=== PATIENT | female | born 1935 | race Caucasian/White ===

== ENCOUNTER 2016-08-24 19:19 | Inpatient (IN) | payer MEDICARE, BC ==
[~2016-08-24] VITALS: Ht 157.5 cm; Wt 81.2 kg
[2016-08-24 20:26] LABS: HEMATOCRIT 37.2 % (37.0-47.0); HEMOGLOBIN 12.6 g/dl (12.5-16.0); MEAN CELL VOLUME 89 fl (80.0-100.0); MEAN CORPUSCULAR HEMOGLOBIN 30 pg (27.0-31.0); MEAN CORPUSCULAR HGB CONC 34 g/dl (33.0-37.0); WHITE BLOOD COUNT 2.7 K/mm3 (4.8-10.8)
[2016-08-24] MEDS ORDERED: GLUCOPHAGE1000 MG PO (20:34)
[2016-08-24] MEDS ORDERED: SYNTHROID0.05 MG/TA PO (20:34)
[2016-08-24] MEDS ORDERED: COREG 25MG25 MG/TAB PO (20:35)
[2016-08-24] MEDS ORDERED: BACTRIM DS 8001 TAB PO (20:35)
[2016-08-24] MEDS ORDERED: PRINIVIL40 MG PO (20:35)
[2016-08-24] MEDS ORDERED: CRESTOR20 MG PO (20:36)
[2016-08-24] MEDS ORDERED: NOVOLOG FLEX100 U/ML SQ (20:36)
[2016-08-24] MEDS ORDERED: LEVEMIR FLEX100 U/ML SQ (20:36)
[2016-08-24 20:44] LABS: ADJUSTED CALCIUM 8.1 mg/dL (8.4-10.2); ALANINE AMINOTRANSFERASE 70 U/L (9-52); ALKALINE PHOSPHATASE 59 U/L (50-136); ANION GAP 14 mmol/L (7-16); BILIRUBIN,TOTAL 0.6 mg/dL (0.0-1.0); BLOOD UREA NITROGEN 32 mg/dL (7-17); CALCIUM 8.1 mg/dL (8.4-10.2); CARBON DIOXIDE 22 mmol/L (22-30); CHLORIDE 93 mmol/L (98-107); CREATININE, serum 1.41 mg/dL (0.52-1.25); GLUCOSE 263 mg/dL (74-106); LIPASE 567 U/L (23-300); MAGNESIUM 1.8 mg/dL (1.6-2.3); PHOSPHOROUS 3.4 mg/dL (2.5-4.5); POTASSIUM 4.2 mmol/L (3.4-5.0); SODIUM 129 mmol/L (137-145); TOTAL PROTEIN 6.8 gm/dL (6.4-8.2)
[2016-08-24 20:45] LABS: C-REACTIVE PROTEIN < 0.5 mg/dL (0.0-0.9)
[2016-08-24 20:48] LABS: PLATELET COUNT 45 K/mm3 (130-400)
[2016-08-24 20:49] LABS: ADD PATHOLOGY DIFF REVIEW NO
[2016-08-24 21:18] LABS: PH 5 (5-8); SQUAMOUS EPITHELIAL 0-2 /hpf; URINE APPEARANCE Cloudy; URINE BACTERIA Rare /hpf; URINE BILIRUBIN Negative (NEGATIVE); URINE BLOOD 1+ (NEGATIVE); URINE COLOR Yellow; URINE GLUCOSE 1+ (NEGATIVE); URINE KETONE Trace (NEGATIVE); URINE UROBILINOGEN Negative (NEGATIVE)
[2016-08-24 21:28] LABS: BAND 4 % (0-10); NEUTROPHILS 59 % (42.0-75.2); TOTAL CELLS COUNTED 100
[2016-08-24 21:29] LABS: MICROCYTOSIS 1+; PLATELET ESTIMATE DECREASED (NORMAL)
[2016-08-24 23:18] VITALS: TEMP 99.2
[2016-08-24 23:32] VITALS: BP 132/68; PULSE 79; TEMP 99.4
[2016-08-25 00:05] LABS: INR 1.1 (0.8-3.0); PROTHROMBIN TIME 12.2 SECONDS (9.7-12.8)
[2016-08-25 04:15] VITALS: BP 127/57; PULSE 80; TEMP 97.9
[2016-08-25 06:44] LABS: ADD PATHOLOGY DIFF REVIEW NO
[2016-08-25 06:53] LABS: INR 1.1 (0.8-3.0); PROTHROMBIN TIME 11.8 SECONDS (9.7-12.8)
[2016-08-25 06:57] LABS: ADJUSTED CALCIUM 8.1 mg/dL (8.4-10.2); ALBUMIN 3.3 gm/dL (3.5-5.0); BILIRUBIN,TOTAL 0.4 mg/dL (0.0-1.0); CALCIUM 7.5 mg/dL (8.4-10.2); CREATININE, serum 1.12 mg/dL (0.52-1.25); MAGNESIUM 1.9 mg/dL (1.6-2.3); POTASSIUM 3.7 mmol/L (3.4-5.0); TOTAL PROTEIN 5.9 gm/dL (6.4-8.2)
[2016-08-25 07:10] LABS: MEAN CELL VOLUME 89 fl (80.0-100.0); MEAN CORPUSCULAR HGB CONC 34 g/dl (33.0-37.0); MEAN PLATELET VOLUME 11.6 fl (7.4-10.4); RED BLOOD COUNT 3.79 M/mm3 (4.10-5.30); WHITE BLOOD COUNT 2.6 K/mm3 (4.8-10.8)
[2016-08-25 07:33] LABS: HEMATOCRIT 33.7 % (37.0-47.0); HEMOGLOBIN 11.5 g/dl (12.5-16.0); MEAN CORPUSCULAR HEMOGLOBIN 30 pg (27.0-31.0)
[2016-08-25 07:35] LABS: PLATELET COUNT 47 K/mm3 (130-400)
[2016-08-25 07:38] VITALS: BP 120/48; PULSE 89; TEMP 98.1
[2016-08-25 09:23] LABS: BAND 10 % (0-10); NEUTROPHILS 37 % (42.0-75.2); TOTAL CELLS COUNTED 100
[2016-08-25 09:24] LABS: ANISOCYTOSIS 1+; PLATELET ESTIMATE DECREASED (NORMAL)
[2016-08-25 11:30] VITALS: BP 108/52; PULSE 78; TEMP 98.2
[2016-08-25 15:53] VITALS: BP 128/74; PULSE 97; TEMP 97.6
[2016-08-25 20:00] VITALS: BP 108/53; PULSE 40; PULSE 80; TEMP 98.5
[2016-08-25 23:05] VITALS: BP 131/62; PULSE 75; TEMP 97.3
[2016-08-26 01:23] VITALS: BP 132/59; PULSE 72; TEMP 98.1
[2016-08-26 03:59] VITALS: BP 128/69; PULSE 74; TEMP 98.2
[2016-08-26 09:23] VITALS: BP 137/61; PULSE 72; TEMP 97.8
[2016-08-26 11:31] LABS: MEAN CELL VOLUME 88 fl (80.0-100.0); MEAN CORPUSCULAR HGB CONC 34 g/dl (33.0-37.0); MEAN PLATELET VOLUME 10.9 fl (7.4-10.4); RED BLOOD COUNT 3.85 M/mm3 (4.10-5.30); REDCELL DISTRIBUTION WIDTH-CV 13.5 % (11.5-14.5); WHITE BLOOD COUNT 3.1 K/mm3 (4.8-10.8)
[2016-08-26 11:49] LABS: HEMATOCRIT 33.8 % (37.0-47.0); HEMOGLOBIN 11.6 g/dl (12.5-16.0); MEAN CORPUSCULAR HEMOGLOBIN 30 pg (27.0-31.0)
[2016-08-26 11:50] LABS: PLATELET COUNT 49 K/mm3 (130-400)
[2016-08-26 11:51] LABS: ADD PATHOLOGY DIFF REVIEW NO
[2016-08-26 12:15] VITALS: BP 132/59; PULSE 102; TEMP 98.1
[2016-08-26 14:58] LABS: BAND 4 % (0-10); NEUTROPHILS 30 % (42.0-75.2); PLATELET ESTIMATE DECREASED (NORMAL); TOTAL CELLS COUNTED 100
== END 2016-08-26 18:20 | disposition home or self-care (01) | DRG 394 ==
LOC: COL.ER 19:19 → MEDICAL 22:23
PROVIDERS: Emergency Medicine; Internal Medicine
DX: K52.1 Toxic gastroenteritis and colitis (principal); N39.0 Urinary tract infection, site not specified; E87.1 Hypo-osmolality and hyponatremia; N17.9 Acute kidney failure, unspecified; T36.8X5A Adverse effect of other systemic antibiotics, initial encounter; E11.9 Type 2 diabetes mellitus without complications; D69.59 Other secondary thrombocytopenia; D70.2 Other drug-induced agranulocytosis; I10 Essential (primary) hypertension; G25.0 Essential tremor
CPT/HCPCS: OP; 99223-AI; 99232-AI; 99239; J0696; J1815; J7030

== ENCOUNTER 2021-10-23 09:48 | Emergency (ER) | payer MEDICARE, BC ==
[~2021-10-23] VITALS: Ht 157.5 cm; Wt 78.6 kg
[~2021-10-23 09:48] MED LIST: BACTRIM DS 8001 TAB PO; COREG 25MG25 MG/TAB PO; CRESTOR20 MG PO; GLUCOPHAGE1000 MG PO; LEVEMIR FLEX100 U/ML SQ; NOVOLOG FLEX100 U/ML SQ; PRINIVIL40 MG PO; SYNTHROID0.05 MG/TA PO
[2021-10-23 10:04] VITALS: BP 184/114; TEMP 97.8
[2021-10-23 10:29] LABS: BASO % 0.4 % (0.0-2.0); EOS % 0.1 % (0.0-4.0); GRAN # 6.2 K/mm3 (1.4-6.5); GRAN % 68.8 % (42.2-75.2); HEMATOCRIT 40.5 % (37.0-47.0); HEMOGLOBIN 13.6 g/dl (12.5-16.0); LYMPH # 2.4 K/mm3 (1.2-3.4); LYMPH % 26.7 % (20.0-51.0); MEAN CELL VOLUME 90 fl (80.0-100.0); MEAN CORPUSCULAR HEMOGLOBIN 30 pg (27-31); MEAN CORPUSCULAR HGB CONC 34 g/dl (33.0-37.0); MEAN PLATELET VOLUME 9.1 fl (7.4-10.4); MONO # 0.3 K/mm3 (0.1-0.6); MONO % 3.8 % (1.7-9.3); PLATELET COUNT 178 K/mm3 (130-400); RED BLOOD COUNT 4.52 M/mm3 (4.10-5.30); REDCELL DISTRIBUTION WIDTH-CV 13.8 % (11.5-14.5)
[2021-10-23 10:37] LABS: ACETONE,SERUM NEGATIVE
[2021-10-23 10:40] LABS: ALANINE AMINOTRANSFERASE 78 U/L (0-55); ALBUMIN 3.8 gm/dL (3.4-4.8); ALKALINE PHOSPHATASE 136 U/L (40-150); ANION GAP 15 mmol/L (7-16); AST,SGOT 28 U/L (5-34); BILIRUBIN,TOTAL 0.7 mg/dL (0.2-1.2); BLOOD UREA NITROGEN 23 mg/dL (10-20); CALCIUM 9.3 mg/dL (8.4-10.2); CARBON DIOXIDE 22 mmol/L (23-31); CHLORIDE 105 mmol/L (98-107); CREATININE, serum 1.06 mg/dL (0.57-1.11); GLUCOSE 181 mg/dL (70-99); POTASSIUM 3.8 mmol/L (3.5-4.5); SODIUM 142 mmol/L (136-145); TOTAL PROTEIN 7.7 gm/dL (6.2-8.1)
[2021-10-23 10:47] LABS: TROPONIN-I < 0.010 ng/mL (0.00-0.033)
[2021-10-23 12:13] LABS: COLLECTION METHOD CLEAN CATCH
[2021-10-23 12:22] LABS: MUCOUS Present (NOT PRESENT); PH 5 (5-8); URINE APPEARANCE Cloudy (CLEAR/HAZY); URINE BACTERIA Many /hpf (NONE SEEN); URINE BILIRUBIN Negative (NEGATIVE); URINE BLOOD 2+ (NEGATIVE); URINE COLOR Yellow (YELLOW); URINE GLUCOSE Negative (NEGATIVE); URINE KETONE Trace (NEGATIVE); URINE LEUKOCYTE ESTERASE 2+ (NEGATIVE); URINE NITRATE Positive (NEGATIVE); URINE PROTEIN(semi-quant) 1+ (NEGATIVE); URINE UROBILINOGEN Negative (NEGATIVE)
[2021-10-23] MEDS ORDERED: CEFTIN500 MG PO (13:24)
[2021-10-23 13:45] VITALS: PULSE 85
--- NOTE | 2021-10-23 13:49 | NUR ---
Skip Locator met with patient and patient's daughter, Kim to discuss home health services. Patient lives in [place] with her grandson, Miah and Kim advised she also lives in [facility]. Patient stated that family are in and out quite a bit. Patient sees Dr. Ojeda for primary care and reports she has a cane, walker, and lift chair at home. Patient states she is normally pretty independent with ADLS and wears briefs at home. SW discussed Home Health services and provided Medicare.gov list of HH agencies. Patient states she is still thinking this over as she has two dogs at home that are very protective of her. SW contacted Liane, Nurse Food Clerk at [facility] and left a message. BERNARDO also collaborated with RN about the above information.
--- NOTE | 2021-10-23 14:39 | NUR ---
Handy Worker spoke with Liane, Automatic Pad Making Machine Operator at [facility] who advised she will follow up with patient and patient's PCP about further discussing home health services.
== END 2021-10-23 13:46 | disposition home or self-care (01) ==
LOC: COL.ER 09:48
PROVIDERS: Physician Assistant
DX: N39.0 Urinary tract infection, site not specified (principal); E11.9 Type 2 diabetes mellitus without complications; Z79.4 Long term (current) use of insulin; R53.1 Weakness; Z88.1 Allergy status to other antibiotic agents
CPT/HCPCS: J0696; J7030

== ENCOUNTER 2022-03-01 16:27 | Inpatient (IN) | payer MEDICARE, BC ==
[~2022-03-01] VITALS: Ht 157.5 cm; Wt 82.6 kg
[~2022-03-01 16:27] MED LIST changes: +CEFTIN500 MG PO
[2022-03-01 16:52] LABS: BASO % 0.3 % (0.0-2.0); GRAN # 7.1 K/mm3 (1.4-6.5); GRAN % 75.5 % (42.2-75.2); HEMATOCRIT 38.6 % (37.0-47.0); HEMOGLOBIN 13.3 g/dl (12.5-16.0); LYMPH # 1.6 K/mm3 (1.2-3.4); MEAN CELL VOLUME 91 fl (80.0-100.0); MEAN CORPUSCULAR HEMOGLOBIN 31 pg (27-31); MEAN CORPUSCULAR HGB CONC 35 g/dl (33.0-37.0); MEAN PLATELET VOLUME 8.9 fl (7.4-10.4); MONO # 0.6 K/mm3 (0.1-0.6); MONO % 6.7 % (1.7-9.3); PLATELET COUNT 120 K/mm3 (130-400); RED BLOOD COUNT 4.26 M/mm3 (4.10-5.30); REDCELL DISTRIBUTION WIDTH-CV 13.4 % (11.5-14.5)
[2022-03-01 17:05] LABS: COLLECTION METHOD CATHETER
[2022-03-01 17:11] LABS: ALANINE AMINOTRANSFERASE 80 U/L (0-55); ALBUMIN 3.8 gm/dL (3.4-4.8); ALKALINE PHOSPHATASE 138 U/L (40-150); ANION GAP 12 mmol/L (7-16); AST,SGOT 22 U/L (5-34); BILIRUBIN,TOTAL 1.2 mg/dL (0.2-1.2); BLOOD UREA NITROGEN 14 mg/dL (10-20); CALCIUM 9.5 mg/dL (8.4-10.2); CARBON DIOXIDE 23 mmol/L (23-31); CHLORIDE 101 mmol/L (98-107); CREATININE, serum 1.15 mg/dL (0.57-1.11); GLUCOSE 179 mg/dL (70-99); POTASSIUM 3.8 mmol/L (3.5-4.5); SODIUM 136 mmol/L (136-145); TOTAL PROTEIN 7.7 gm/dL (6.2-8.1)
[2022-03-01 17:14] LABS: MUCOUS Present (NOT PRESENT); SQUAMOUS EPITHELIAL None Seen /hpf (0-10); URINE APPEARANCE Cloudy (CLEAR/HAZY); URINE BACTERIA Rare /hpf (NONE SEEN); URINE COLOR Yellow (YELLOW); URINE RBC >50 /hpf (0-2)
[2022-03-01 17:15] LABS: URINE BLOOD 2+ (NEGATIVE); URINE GLUCOSE Negative (NEGATIVE); URINE KETONE Negative (NEGATIVE); URINE NITRATE Negative (NEGATIVE); URINE PROTEIN(semi-quant) 2+ (NEGATIVE); URINE UROBILINOGEN 0.2 (NEGATIVE)
[2022-03-01 17:21] LABS: TROPONIN-I < 0.010 ng/mL (0.00-0.033)
[2022-03-01] MEDS ORDERED: VESICARE10 MG PO (19:15)
[2022-03-01] MEDS ORDERED: CRESTOR20 MG PO (19:15)
[2022-03-01] MEDS ORDERED: OZEMPIC1 MG/0.71 SQ (19:19)
[2022-03-01] MEDS ORDERED: COREG 25MG25 MG/TAB PO (19:57)
[2022-03-02 04:45] VITALS: BP 112/58; PULSE 72; TEMP 97.7
[2022-03-02 06:44] LABS: BASO % 0.4 % (0.0-2.0); EOS % 0.2 % (0.0-4.0); GRAN # 7.2 K/mm3 (1.4-6.5); GRAN % 66.5 % (42.2-75.2); HEMOGLOBIN 11.6 g/dl (12.5-16.0); LYMPH # 2.6 K/mm3 (1.2-3.4); LYMPH % 24.2 % (20.0-51.0); MEAN CELL VOLUME 92 fl (80.0-100.0); MEAN CORPUSCULAR HEMOGLOBIN 31 pg (27-31); MEAN CORPUSCULAR HGB CONC 34 g/dl (33.0-37.0); MEAN PLATELET VOLUME 9.5 fl (7.4-10.4); MONO # 0.9 K/mm3 (0.1-0.6); MONO % 8.1 % (1.7-9.3); PLATELET COUNT 106 K/mm3 (130-400); RED BLOOD COUNT 3.72 M/mm3 (4.10-5.30); REDCELL DISTRIBUTION WIDTH-CV 13.5 % (11.5-14.5)
--- NOTE | 2022-03-02 06:45 | NUR ---
PT HAD UNEVENTFUL NIGHT. HAD ISSUES WITH URINATION AND BOWELS. STATES THAT SHE KNOWS SHE HAS TO GO, BUT CAN'T STOP IT.
[2022-03-02 06:46] LABS: HEMATOCRIT 34.3 % (37.0-47.0)
[2022-03-02 06:57] LABS: CALCIUM 8.4 mg/dL (8.4-10.2); CREATININE, serum 0.95 mg/dL (0.57-1.11); POTASSIUM 3.7 mmol/L (3.5-4.5)
[2022-03-02 07:56] VITALS: BP 155/46; PULSE 70; TEMP 98
--- NOTE | 2022-03-02 09:15 | NUR ---
Pt assessment complete. Pt sitting up in bed eating breakfast, she is A/O x4. Her breathing is even and unlabored on RA. Pt denies any SOB or pain. Reports she doesn't feel well. She states she is afraid of falling, discussed the importance of having a staff member with her when ambulating so she does not fall, she is agreeable. Currently has a purewick in place. No needs at this time. Call light within reach.
[2022-03-02 11:30] VITALS: BP 126/39; PULSE 75; TEMP 98.3
[2022-03-02] MEDS ORDERED: FISH OIL 1000MG1 CAP PO (12:16)
--- NOTE | 2022-03-02 14:10 | NUR ---
SW met with patient to complete intake. Patient reports that she lives at home with her grandson in [place]. She is normally independent with her ADL's and utilizes a cane most of the time to assist with mobility but has access to a walker at home. She has no home oxygen needs. PCP is Dr. Ojeda and she utilizes [facility] pharmacy for prescriptions. Patient states she does have a DPOA-HC established listing her daughter Kmi ([phone]). SW reviewed PT rec's of home with her grandson. Patient states that she would like to go somewhere for more therapy such as a SNF. Patient left with the [facility].gov list of SNF facilities. for [place]. Discharge plan: SNF
[2022-03-02 15:54] VITALS: BP 136/52; PULSE 84; TEMP 98.7
--- NOTE | 2022-03-02 18:28 | NUR ---
Pt had uneventful day, she has been A/O but still has weakness present. Purewick utilized for incontinence. Sat up in the chair for a few hours. No pain or needs at this time. Call light and fall precautions in place .
[2022-03-02 21:13] VITALS: BP 144/53; PULSE 83; TEMP 98.8
[2022-03-03 01:37] VITALS: BP 174/59; PULSE 76; TEMP 97.8
[2022-03-03 03:54] VITALS: BP 158/52; PULSE 76; TEMP 98.4
[2022-03-03 08:23] VITALS: BP 156/61; PULSE 73; TEMP 97.6
--- NOTE | 2022-03-03 10:57 | NUR ---
PT ALERT AND ORIENTED WITH VITALS STABLE ON ROOM AIR. PT REPORTS FEELING TIRED AFTER WORKING WITH PT. PT IS LAYING IN BED. PT HAD AN INCONTINENT STOOL EPISODE. PT DENIES PAIN. CALL LIGHT WITHIN REACH. NO FURTHER NEEDS IDENTIFIED.
[2022-03-03 11:22] VITALS: BP 169/51; PULSE 65; TEMP 98
--- NOTE | 2022-03-03 15:16 | NUR ---
OT is recommending SNF. PT is recommending home with grandson, if able. BERNARDO attempted to contact the patient's daughter, Kim, to review therapy's recommendations. BERNARDO left a voicemail. BERNARDO met with the patient and her son to discuss their recommendation. The patient and her son are agreeable to SNF. BERNARDO provided the patient with Medicare.[employer]'s list of SNFs in the [facility]. The patient would like to review the list with her daughter, before making a final decision on preference, but she would prefer [facility]. She states that her used to be at [facility]. She is open to SW sending referrals to the three facilities [facility]. BERNARDO contacted and faxed a referral to [facility], [facility], and [facility]. Awaiting screens. *Discharge plan: SNF*
[2022-03-03 15:45] VITALS: BP 175/49; PULSE 70; TEMP 98.4
--- NOTE | 2022-03-03 18:56 | NUR ---
PT SITTING UP IN BED. PT REPORTS HIP PAIN, MEDICATION GIVEN. PT BED ALARM ON. CALL LIGHT WITHIN REACH. NO FURTHER NEEDS AT THE MOMENT.
--- NOTE | 2022-03-03 19:00 | NUR ---
THE PATIENT IS LAYING IN BED, DENIES ANY PAIN OR DISCOMFORT. WILL RETURN FOR NIGHT TIME MEDICATIONS.
[2022-03-03 20:27] VITALS: BP 143/46; PULSE 69; TEMP 98.9
[2022-03-04 00:17] VITALS: BP 152/57; PULSE 67; TEMP 97.9
[2022-03-04 04:38] VITALS: BP 195/61; PULSE 72; TEMP 99
[2022-03-04 07:04] LABS: BASO % 0.6 % (0.0-2.0); EOS # 0.1 K/mm3 (0.0-0.7); EOS % 1.4 % (0.0-4.0); GRAN # 4.5 K/mm3 (1.4-6.5); GRAN % 62.2 % (42.2-75.2); HEMOGLOBIN 11.1 g/dl (12.5-16.0); LYMPH # 1.9 K/mm3 (1.2-3.4); MEAN CELL VOLUME 91 fl (80.0-100.0); MEAN CORPUSCULAR HEMOGLOBIN 31 pg (27-31); MEAN CORPUSCULAR HGB CONC 34 g/dl (33.0-37.0); MEAN PLATELET VOLUME 9.9 fl (7.4-10.4); MONO # 0.7 K/mm3 (0.1-0.6); MONO % 9.5 % (1.7-9.3); PLATELET COUNT 104 K/mm3 (130-400); RED BLOOD COUNT 3.57 M/mm3 (4.10-5.30); REDCELL DISTRIBUTION WIDTH-CV 13.3 % (11.5-14.5)
[2022-03-04 07:07] LABS: HEMATOCRIT 32.5 % (37.0-47.0)
[2022-03-04 07:15] LABS: CALCIUM 8.4 mg/dL (8.4-10.2); CREATININE, serum 1.02 mg/dL (0.57-1.11); POTASSIUM 3.4 mmol/L (3.5-4.5)
[2022-03-04 07:39] VITALS: BP 172/50; PULSE 64; TEMP 98.1
[2022-03-04] MEDS ORDERED: NORVASC 5MG5 MG/TAB PO (09:03)
[2022-03-04] MEDS ORDERED: AMOXICILLIN/CLA1 TA1 PO (09:03)
--- NOTE | 2022-03-04 11:10 | NUR ---
The clinical team is ready to discharge the patient today. BERNARDO met with the patient and her daughter, Kim, to follow up. The patient prefers [facility] now. BERNARDO presented and read the IM form outloud to the patient and her daughter. The patient verbalized understanding and of agreement to discharge today. BERNARDO provided her with a copy. BERNARDO faxed updates to [facility], [facility], and [facility]. Parveen, at [facility], reports that they are able to accept the patient. The patient is to discharge today, 03/04, to [facility] for a skilled stay. Transportation was scheduled at 1200, via [facility]. BERNARDO informed the patient, daughter, and RN of the transport time. No additional needs at this time.
--- NOTE | 2022-03-04 12:15 | NUR ---
Scheduled medications given. Shift assessment preformed. Patient hypertensive, scheduled bp medication given as well as one time dose of amlodipine given. Upon recheck, BP WNL. Remainder of VSS. Patient A&O, but forgetful. Patient complains of aching pain in right knee, but denies the need for interventions at this time. Patient denies any further pain, discomfort, SOA, or further needs at this time. Report called to RN at [facility]. V staff transporting to facility.
[2022-03-04 12:19] VITALS: BP 172/50; PULSE 64; TEMP 98.1
== END 2022-03-04 12:30 | DRG 690 ==
LOC: COL.ER 16:27 → MEDICAL 19:05
PROVIDERS: Emergency Medicine; Nurse Practitioner Family; Physician Assistant; ADMIT Internal Medicine
DX: N39.0 Urinary tract infection, site not specified (principal); N17.9 Acute kidney failure, unspecified; Z20.822 Contact with and (suspected) exposure to COVID-19; E78.5 Hyperlipidemia, unspecified; E03.9 Hypothyroidism, unspecified; D69.6 Thrombocytopenia, unspecified; E11.65 Type 2 diabetes mellitus with hyperglycemia; I12.9 Hypertensive chronic kidney disease with stage 1 through stage 4 chronic kidney disease, or unspecified chronic kidney disease; E11.22 Type 2 diabetes mellitus with diabetic chronic kidney disease; N18.9 Chronic kidney disease, unspecified; B96.20 Unspecified Escherichia coli [E. coli] as the cause of diseases classified elsewhere; Z79.890 Hormone replacement therapy; Z88.1 Allergy status to other antibiotic agents; Z79.4 Long term (current) use of insulin; Z23 Encounter for immunization
CPT/HCPCS: J0696; J1650; J1815; J7030; J7120

== ENCOUNTER 2023-01-04 07:21 | Inpatient (IN) | payer MEDICARE, BC ==
[~2023-01-04] VITALS: Ht 160 cm; Wt 61.8 kg
[2023-01-04] VITALS (16 sets, daily range): BP systolic 115–164; BP diastolic 44–80; PULSE 72–84; TEMP 97.6–98.2
[~2023-01-04 07:21] MED LIST changes: +AMOXICILLIN/CLA1 TA1 PO; +CEFTIN 250250 MG/TAB PO; +FISH OIL 1000MG1 CAP PO; +LEVAQUIN 5500 MG/TA1 PO; +NORVASC 5MG5 MG/TAB PO; +NOVOLOG 100U100 U/M1 SQ; +OZEMPIC1 MG/0.71 SQ; +OZEMPIC2 MG/0.75 SQ; +TAMIFLU30 MG PO; +VESICARE10 MG PO
[2023-01-04 08:11] LABS: HEMATOCRIT 37.8 % (37.0-47.0); HEMOGLOBIN 12.9 g/dl (12.5-16.0); MEAN CELL VOLUME 89 fl (80.0-100.0); MEAN CORPUSCULAR HEMOGLOBIN 30 pg (27-31); MEAN CORPUSCULAR HGB CONC 34 g/dl (33.0-37.0); MEAN PLATELET VOLUME 11.3 fl (7.4-10.4); PLATELET COUNT 121 K/mm3 (130-400); RED BLOOD COUNT 4.24 M/mm3 (4.10-5.30); REDCELL DISTRIBUTION WIDTH-CV 13.8 % (11.5-14.5)
[2023-01-04] MEDS ORDERED: COREG 25MG25 MG/TAB PO (08:33)
[2023-01-04 09:07] LABS: CREATININE, serum 1.2 mg/dL (0.57-1.11)
[2023-01-04 09:56] LABS: INR 1.1 (0.8-3.0); PROTHROMBIN TIME 11.6 SECONDS (9.7-12.8)
[2023-01-04 10:54] LABS: COLLECTION METHOD CATHETER
[2023-01-04 11:23] LABS: MUCOUS Present (NOT PRESENT); URINE APPEARANCE Cloudy (CLEAR/HAZY); URINE BACTERIA Rare /hpf (NONE SEEN); URINE BLOOD 3+ (NEGATIVE); URINE COLOR Yellow (YELLOW); URINE GLUCOSE Negative (NEGATIVE); URINE KETONE 2+ (NEGATIVE); URINE NITRATE Negative (NEGATIVE); URINE PROTEIN(semi-quant) 3+ (NEGATIVE); URINE RBC >50 /hpf (0-2); URINE UROBILINOGEN 0.2 E.U/dL (0.2-1.0)
--- NOTE | 2023-01-04 12:00 | NUR ---
PT CAME IN WITH SEVERE PAIN R/T L HIP FX ACCOMPANIED BY DAUGHTER. PT ADMISSION ASSESSMENT COMPLETED. PT INFORMED OF SURGERY TODAY OF LEFT HIP REPAIR BY DR. DOMÍNGUEZ, PT AKNOWLEDGES UNDERSANDING OF EXPLAINATION OF SURGERY. CONSENT SIGNED AND PT OFF THE FLOOR AT 1230.
--- NOTE | 2023-01-04 17:59 | NUR ---
Patient has been drowsy post op. Vss on room air. Left hip dressing x3 gauze & tegaderm dressing intact. Scds & teds ble. IVf as ordered.
--- NOTE | 2023-01-04 18:36 | NUR ---
pt resting in bed vitals stable without c/o pain. 4 incisions to left hip covered by gauze, incision site clean dry and intact. NS running per jun. pt alert to voice pulses palpable.
--- NOTE | 2023-01-04 19:00 | NUR ---
PT VERY SLEEPY POST SURGERY. REFUSED DINNER TRAY.
--- NOTE | 2023-01-04 21:43 | NUR ---
PT AWAKENS TO NAME. TAKES HS MEDS INCLUDING OXYCODONE FOR LT HIP PAIN. REFUSED SENNA. IVF TO RAC INFUSING WITHOUT PROBLEM. HAS DRSG'S TO LT HIP D/I. ICE PACK REPLACED. PT ORIENTED X2. BRIGHT TO BSD WITH HAZY YELLOW URINE.
[2023-01-05] VITALS (9 sets, daily range): BP systolic 98–142; BP diastolic 40–62; PULSE 81–88; TEMP 97.9–99
--- NOTE | 2023-01-05 02:09 | NUR ---
PT AWAKE, CONFUSED TO PLACE AND TIME. MEDICATED WITH OXYCODONE 5MG PO FOR LT HIP PAIN. ATTEMPTED TO REORIENT PT, MINIMAL SUCCESS.
--- NOTE | 2023-01-05 05:51 | NUR ---
PT AWAKE, TAKES SCHEDULED AM MEDS WITHOUT PROBLEM. IVF CONTINUE TO RAC.
[2023-01-05 07:13] LABS: BASO % 0.2 % (0.0-2.0); GRAN # 6.9 K/mm3 (1.4-6.5); GRAN % 67.7 % (42.2-75.2); LYMPH # 2.3 K/mm3 (1.2-3.4); LYMPH % 22.8 % (20.0-51.0); MEAN CELL VOLUME 92 fl (80.0-100.0); MEAN CORPUSCULAR HGB CONC 33 g/dl (33.0-37.0); MEAN PLATELET VOLUME 9.8 fl (7.4-10.4); MONO # 0.9 K/mm3 (0.1-0.6); MONO % 8.9 % (1.7-9.3); PLATELET COUNT 128 K/mm3 (130-400); RED BLOOD COUNT 3.09 M/mm3 (4.10-5.30); REDCELL DISTRIBUTION WIDTH-CV 13.6 % (11.5-14.5)
[2023-01-05 07:31] LABS: CALCIUM 8.3 mg/dL (8.4-10.2); CREATININE, serum 1.37 mg/dL (0.57-1.11); POTASSIUM 4.4 mmol/L (3.5-4.5)
[2023-01-05 07:54] LABS: HEMATOCRIT 28.3 % (37.0-47.0); MEAN CORPUSCULAR HEMOGLOBIN 30 pg (27-31)
[2023-01-05 07:57] LABS: HEMOGLOBIN 9.4 g/dl (12.5-16.0)
--- NOTE | 2023-01-05 08:00 | NUR ---
PT RESTING IN BED ORIENTED TO SELF ONLY WITH NO PAIN AT THIS TIME. BRIGHT DRAINING, YELLOW AND CLOUDY. BLE EQUAL IN SENSATION, TEMP, AND COLOR. PLANS TO GET UP WITH THERAPY TODAY. FAMILY AT BEDSIDE. NO NEEDS AT THIS TIME. WILL CONTINUE TO MONITOR.
--- NOTE | 2023-01-05 08:00 | NUR ---
BP 116/45 AND HTN MEDICATION HELD AT THIS TIME.
--- NOTE | 2023-01-05 09:52 | NUR ---
Initial visit; Patient thanked Motorcycle Repairer for looking in on her, listening, offering empathy and prayer. Motorcycle Repairer found Olga to be somewhat anxious and responded to Spiritual Care immediately. Patient asked Motorcycle Repairer to return while she is hospitalized. Motorcycle Repairer said she would visit. while Olga is hospitalized here with us.
--- NOTE | 2023-01-05 09:52 | NUR ---
Cutter Inspector met with Nhi and daughter/DPEUN Alvarez to conduct Care Managment Assessment and discuss discharge planning. Patient lives with Kim in [place], [place]. Kim is Patient's community pharmacist caregiver. Patient is established with PCP Dr. Morejon and is covered by [facility] and [facility] for insurance. [facility]. Patient denies the use of O2 and endorses the use of a walker prior to her fall. Patient reports independency with ADL and assistance with showering at home. Patient will likely need post-acute rehab. BERNARDO discussed options with Patient and DPOAHC. PAtient states that she would like to go to [facility] due to having been there before. Cutter Inspector provided Medicare.gov list of options to Patient and daughter. Cutter Inspector sent referral to Parveen with [facility]. Parveen reports reciept of referral. Dishcarge Plan: SNF
--- NOTE | 2023-01-05 21:05 | NUR ---
PT WHIMPERING IN PAIN TO LT HIP, MEDICATED WITH OXYCODONE 5MG PO AND REPOSITIONED IN BED. HAS DRSG'S TO LT HIP X3 D/I. HAS IVF TO RFA INFUSING WITHOUT PROBLEM. BRIGHT TO BSD WITH HAZY YELLOW URINE. IS ALERT AND ORIENTED X3.
--- NOTE | 2023-01-05 21:50 | NUR ---
HS MEDS GIVEN, PT STILL REPORTING PAIN TO LT HIP RADIATING TO RT HIP. DILAUDID GIVEN AT THIS TIME.
--- NOTE | 2023-01-05 22:18 | NUR ---
PT CONTINUES TO WHIMPER IN PAIN. OXYCODONE REPEATED WITH SCHEDULED ES TYLENOL.
--- NOTE | 2023-01-05 23:33 | NUR ---
PT RESTING WITH EYES CLOSED. ICE PACK TO LT HIP.
[2023-01-06] VITALS (11 sets, daily range): BP systolic 105–180; BP diastolic 34–90; PULSE 68–103; TEMP 97.3–98.5
--- NOTE | 2023-01-06 03:19 | NUR ---
PT REPORTS PAIN TO LT HIP, OXYCODONE 5MG GIVEN.
--- NOTE | 2023-01-06 04:02 | NUR ---
PT STILL HAVING PAIN, ASSISTED TO BEDPAN FOR POSSIBLE BM. REPEATED OXYCODONE 5MG PO NOW.
--- NOTE | 2023-01-06 04:15 | NUR ---
NO SUCCESS WITH BM. OFF BEDPAN.
--- NOTE | 2023-01-06 05:45 | NUR ---
SCHEDULED AM MED GIVEN, REPORTS GOOD PAIN RELIEF AFTER MEDS AT 0402.
[2023-01-06 07:19] LABS: HEMOGLOBIN 7.6 g/dl (12.5-16.0); MEAN CELL VOLUME 92 fl (80.0-100.0); MEAN CORPUSCULAR HEMOGLOBIN 31 pg (27-31); MEAN CORPUSCULAR HGB CONC 33 g/dl (33.0-37.0); MEAN PLATELET VOLUME 9.9 fl (7.4-10.4); PLATELET COUNT 99 K/mm3 (130-400); RED BLOOD COUNT 2.48 M/mm3 (4.10-5.30); REDCELL DISTRIBUTION WIDTH-CV 13.7 % (11.5-14.5)
[2023-01-06 07:20] LABS: HEMATOCRIT 22.8 % (37.0-47.0)
--- NOTE | 2023-01-06 07:49 | NUR ---
pt resting in bed, easily awaken for meds. vss. pt denies pain this morning. nicole to dd w clear yellow urine ouput. left hip dressings are cdi. BS 159, 2 units insulin given. mepilex to coccyx for protection. fluids infusing in right forearm at 75ml/hr. fall precautions in place. call light in reach. pt up eating breakfast. no needs at this time.
[2023-01-06 09:03] LABS: CALCIUM 7.9 mg/dL (8.4-10.2); CREATININE, serum 1.12 mg/dL (0.57-1.11); POTASSIUM 4.1 mmol/L (3.5-4.5)
--- NOTE | 2023-01-06 09:40 | NUR ---
Follow-up visit; Patient thanked Junior Data Analyst for coming in again this morning. Patient had a lot to talk about and appears somewhat wistful about not being able to do things she is used to doing like going to episcopalian and meeting with her friends weekly for Bible Study and a meal. Junior Data Analyst empathised and offered prayer and will see Olga before she is transferred to [facility] for [facility]. Olga thanked for her help.
--- NOTE | 2023-01-06 12:00 | NUR ---
[facility]. pain has improved
[2023-01-06 14:24] LABS: HEMATOCRIT 26.4 % (37.0-47.0); HEMOGLOBIN 8.9 g/dl (12.5-16.0)
--- NOTE | 2023-01-07 00:10 | NUR ---
Bladder scan completed by PCT with >800 mls of urine. Spoke with ANTHONY Yeung-new orders received and initiated.
--- NOTE | 2023-01-07 00:27 | NUR ---
16F nicole placed at this time. Immediate return of 950mls of clear yellow urine. Patient more comfortable at this time. WIll monitor.
--- NOTE | 2023-01-07 06:34 | NUR ---
pt able to rest after nicole replaced and pain meds given. remains confused/forgetful. bed alarm on.
[2023-01-07 06:35] LABS: BASO # 0.1 K/mm3 (0.0-0.2); BASO % 0.6 % (0.0-2.0); EOS # 0.2 K/mm3 (0.0-0.7); EOS % 1.6 % (0.0-4.0); GRAN # 4.4 K/mm3 (1.4-6.5); GRAN % 43.7 % (42.2-75.2); LYMPH # 4.7 K/mm3 (1.2-3.4); LYMPH % 46.7 % (20.0-51.0); MEAN CELL VOLUME 94 fl (80.0-100.0); MEAN CORPUSCULAR HGB CONC 33 g/dl (33.0-37.0); MEAN PLATELET VOLUME 10.4 fl (7.4-10.4); MONO # 0.7 K/mm3 (0.1-0.6); MONO % 7.1 % (1.7-9.3); PLATELET COUNT 107 K/mm3 (130-400); RED BLOOD COUNT 2.44 M/mm3 (4.10-5.30); REDCELL DISTRIBUTION WIDTH-CV 13.9 % (11.5-14.5)
[2023-01-07 06:39] LABS: HEMOGLOBIN 7.6 g/dl (12.5-16.0); MEAN CORPUSCULAR HEMOGLOBIN 31 pg (27-31)
[2023-01-07 06:59] LABS: CALCIUM 8.1 mg/dL (8.4-10.2); CREATININE, serum 1.07 mg/dL (0.57-1.11); POTASSIUM 4.3 mmol/L (3.5-4.5)
[2023-01-07 07:06] VITALS: BP 113/56; PULSE 80; TEMP 98.4
--- NOTE | 2023-01-07 07:50 | NUR ---
pt awake resting in bed, transferred pt to recliner for breakfast. pt denies pain at this time. meds given and assessment complete. dressing to left hip has mild shadowing. nicole to dd w dark cloudy urine output. INT to right forearm. BS 157, requiring 2 units of insulin. fall precautions in place. call light in reach. pt denies any needs.
[2023-01-07] MEDS ORDERED: TYLENOL 500MG500 MG PO (08:44)
[2023-01-07] MEDS ORDERED: FERROUS SU325 MG/TAB PO (08:44)
[2023-01-07] MEDS ORDERED: ASPI325T6 PO (08:44)
[2023-01-07] MEDS ORDERED: GOOD SENSE400 MG/5 M PO (08:45)
[2023-01-07] MEDS ORDERED: DULCOLAX S10 MG/SUPP RC (08:45)
[2023-01-07] MEDS ORDERED: SENNA-S 50 MG-81 TAB PO (08:45)
[2023-01-07] MEDS ORDERED: ROXICODONE 55 MG/TAB PO (08:46)
[2023-01-07] MEDS ORDERED: NOVLOG SQ (08:50)
--- NOTE | 2023-01-07 08:50 | NUR ---
Health Commissioner collaborated with Treatment Team during rounding to assess Patient for discharge readiness. Physician assesses Patient to be ready to discharge to [facility] today. SW contacted Parveen with [facility] to report Patient readiness. BERNARDO sent clinical updates. Parveen reports that he will schedule transport and notify this SW when it is confirmed. BERNARDO conducted Medicare IM brief with PAtient and DPOA. Patient acknowledges brief and signs form. Original placed in chart, copy provided to Patient.
--- NOTE | 2023-01-07 08:52 | NUR ---
bonnie randall'd per dr louie. encouraged fluid intake and will make sure patient urinates before discharge.
[2023-01-07] MEDS ORDERED: CEFTIN500 MG PO (08:58)
[2023-01-07 09:02] VITALS: BP_SYST 113
--- NOTE | 2023-01-07 10:01 | NUR ---
Initial visit; Patient and her daughter thanked for offering a special blessing for Olga before she is moved to [facility] for physical therapy. Word Processor Technician wished Olga well and will keep her in Word Processor Technician's prayers by Olga's request.
[2023-01-07 11:29] VITALS: BP 119/52; PULSE 72; TEMP 97.8
--- NOTE | 2023-01-07 12:18 | NUR ---
Air Pollution Inspector was informed by Parveen at [facility] that Tr[facility] is scheduled for 1300 today. BERNARDO informed nursing staff who agrees to this discharge time. BERNARDO sent discharge orders to Ausstin at [facility].
--- NOTE | 2023-01-07 12:19 | NUR ---
pt up to commode, 200ml urine output. back to recliner, pt vomited. contact dr louie, will send prescription for po zofran. to give IV zofran before discharge. pt denies pain.
--- NOTE | 2023-01-07 13:05 | NUR ---
pt transferred to wheelchair to discharge to [facility]. paperwork given to [facility] employee. daughter left with patients belongings. report called to Anali, all questions answered.
[2023-01-07] MEDS ORDERED: ZOFRAN ODT4 MG PO (13:08)
[2023-01-07 13:17] VITALS: BP_SYST 119
== END 2023-01-07 13:05 | DRG 481 ==
LOC: COL.ER 07:21 → SURG 09:47
PROVIDERS: Emergency Medicine; Orthopaedic Surgery; Physician Assistant; ADMIT Internal Medicine
PROC: 0QS706Z Reposition Left Upper Femur with Intramedullary Internal Fixation Device, Open Approach (ICD-10-PCS; principal; 2023-01-04 12:30)
DX: S72.142A Displaced intertrochanteric fracture of left femur, initial encounter for closed fracture (principal); D62 Acute posthemorrhagic anemia; N39.0 Urinary tract infection, site not specified; N18.30 Chronic kidney disease, stage 3 unspecified; D69.6 Thrombocytopenia, unspecified; I10 Essential (primary) hypertension; E78.5 Hyperlipidemia, unspecified; E03.9 Hypothyroidism, unspecified; E11.9 Type 2 diabetes mellitus without complications; Z79.4 Long term (current) use of insulin; I12.9 Hypertensive chronic kidney disease with stage 1 through stage 4 chronic kidney disease, or unspecified chronic kidney disease; N32.81 Overactive bladder
CPT/HCPCS: A4314; A9284; C1713; J0690; J0696; J1100; J1170; J1815; J2270; J2371; J2405; J2704; J2795; J3010; J7030